=== PATIENT | female | born 1980 | race Caucasian/White ===

== ENCOUNTER 2021-11-10 10:44 | Outpatient (CLI) | payer MEDICARE | END 2021-11-10 10:45 | disposition home or self-care (01) | LOC: CSHWCC 10:44 | PROVIDERS: ATTEND Nurse Practitioner Family | DX: L89.153 Pressure ulcer of sacral region, stage 3 (principal); E11.622 Type 2 diabetes mellitus with other skin ulcer; L98.499 Non-pressure chronic ulcer of skin of other sites with unspecified severity; E66.3 Overweight; Z74.01 Bed confinement status; Z86.16 Personal history of COVID-19 ==

== ENCOUNTER 2021-12-01 10:51 | Outpatient (CLI) | payer MEDICARE | END 2021-12-01 10:52 | disposition home or self-care (01) | LOC: CSHWCC 10:51 | PROVIDERS: ATTEND Nurse Practitioner Family | DX: L89.159 Pressure ulcer of sacral region, unspecified stage (principal) | CPT/HCPCS: 97139; G0463; 99213 ==

== ENCOUNTER 2021-12-29 08:22 | Outpatient (CLI) | payer MEDICARE | END 2021-12-29 08:23 | disposition home or self-care (01) | LOC: CSHWCC 08:22 | PROVIDERS: ATTEND Nurse Practitioner Family | DX: L89.153 Pressure ulcer of sacral region, stage 3 (principal); L89.312 Pressure ulcer of right buttock, stage 2 | CPT/HCPCS: 97139; G0463; 99213 ==

== ENCOUNTER 2022-03-16 10:29 | Outpatient (CLI) | payer OTHER | END 2022-03-16 10:30 | disposition home or self-care (01) | LOC: CSHWCC 10:29 | PROVIDERS: ATTEND Nurse Practitioner Family | DX: L89.153 Pressure ulcer of sacral region, stage 3 (principal); L89.312 Pressure ulcer of right buttock, stage 2 ==

== ENCOUNTER 2022-04-13 10:51 | Outpatient (CLI) | payer OTHER | END 2022-04-13 10:52 | disposition home or self-care (01) | LOC: CSHWCC 10:51 | PROVIDERS: ATTEND Nurse Practitioner Family | DX: L89.153 Pressure ulcer of sacral region, stage 3 (principal); L89.312 Pressure ulcer of right buttock, stage 2 | CPT/HCPCS: 99213; G0463 ==

== ENCOUNTER 2022-05-25 10:33 | Outpatient (CLI) | payer MEDICARE, OTHER | END 2022-05-25 10:34 | disposition home or self-care (01) | LOC: CSHWCC 10:33 | PROVIDERS: ATTEND Nurse Practitioner Family | DX: L89.153 Pressure ulcer of sacral region, stage 3 (principal); L89.312 Pressure ulcer of right buttock, stage 2 | CPT/HCPCS: 99213; G0463 ==